=== PATIENT | male | born 2000 ===

== ENCOUNTER 2025-06-10 15:15 | Emergency (ER) | payer SELFPAY ==
[2025-06-10] MEDS ORDERED: Metoclopramide HCl 10 MG (2 mL) VIAL ONE (16:08)
[2025-06-10] MEDS ORDERED: diphenhydrAMINE 50 MG/ML VIAL ONE (16:08)
[2025-06-10 16:19] LABS: #Basophils 0.03 10x3/uL (0.0-0.2); #Eosinophils 0.22 10x3/uL (0.0-0.7); #Monocytes 0.58 10x3/uL (0.11-0.59); #Neutrophils 4.83 10x3/uL (1.40-6.50); %Basophils 0.4 % (0.0-1.0); %Eosinophils 2.6 % (0.0-10.0); %Lymphocytes 32.6 % (21.0-51.0); %Monocytes 6.9 % (0.0-10.0); %Neutrophils 57.1 % (42.0-75.0); Hematocrit 42.7 % (42.0-52.0); Hemoglobin 14.1 g/dL (14.0-18.0); Mean Corpuscular Hemoglobin 27.4 pg (27.0-31.0); Mean Corpuscular Volume 82.9 fL (78.0-98.0); Platelet Count 250 10x3/uL (130-400); Red Blood Cell (RBC) Count 5.15 mill/uL (4.70-6.10); White Blood Cell (WBC) Count 8.44 10x3/uL (4.8-10.8)
[2025-06-10 16:37] LABS: ALT (SGPT) 99 U/L (Less than 45); AST (SGOT) 76 U/L (11-34); Albumin 4.7 g/dL (3.1-4.5); Alkaline Phosphatase 77 U/L (40-110); Anion Gap 12 mmol/L (10-20); BUN (Urea Nitrogen) 12 mg/dL (8.9-20.6); Bilirubin, Total 0.3 mg/dL (0.3-1.2); Calc. Creatinine Clearance 0 mL/min (70-130); Calcium 9.7 mg/dL (7.8-10.44); Carbon Dioxide 21 mmol/L (22-29); Chloride 107 mmol/L (98-107); Globulin 3.5 g/dL (2.4-3.5); Glucose 100 mg/dL (70-105); Lipase 30 U/L (8-78); Potassium 3.4 mmol/L (3.5-5.1); Sodium 137 mmol/L (136-145)
== END 2025-06-10 18:11 | disposition home or self-care (01) ==
LOC: ERS 15:15
DX: R56.9 Unspecified convulsions (principal); R07.89 Other chest pain
CPT/HCPCS: 70450; 71045; 80053; 83690; 84484; 85025; 93005; 96374; 96375; J1200; J2765